=== PATIENT | male | born 1980 ===

== ENCOUNTER 2019-09-22 07:53 | Day surgery (SDC) | payer OTHER ==
[~2019-09-22 07:53] MED LIST: Buffered Lidocaine 1% SYRIN* 1 ML/SYRINGE INTRADERM ONE; Lactated Ringers 1000 ML Bag* 1,000 ML IV SCH
[2019-09-22] MEDS ORDERED: ceFAZolin 2 GM PREMIX in ORs 2 GM/50 ML BAG ONE (08:05)
[2019-09-22] MEDS ORDERED: Glycopyrrolate IV* 0.2 MG/ML 1 ML VIAL ONE (08:20)
[2019-09-22] MEDS ORDERED: Propofol* 10 MG/ML 20 ML BTL ONE (08:20)
[2019-09-22] MEDS ORDERED: Ketorolac INJ* 30 MG/ML 1 ML VIAL ONE (08:20)
[2019-09-22] MEDS ORDERED: Dexamethasone IV* 4 MG/ML 1 ML (4 MG) ONE (08:20)
[2019-09-22] MEDS ORDERED: Rocuronium* 10 MG/ML VIAL ONE (08:20)
[2019-09-22] MEDS ORDERED: fentaNYL* 50 MCG/ML 2 ML VIAL (100 MCG VIAL) ONE (08:20)
[2019-09-22] MEDS ORDERED: Ondansetron INJ* 2 MG/ML VIAL ONE (08:20)
[2019-09-22] MEDS ORDERED: Midazolam* 1 MG/ML 2 ML VIAL (2 MG) ONE (08:20)
[2019-09-22] MEDS ORDERED: oxyCODONE/Acetamin 5/325 MG* TAB PO PRN (11:03)
[2019-09-22] MEDS ORDERED: Naloxone* 0.4 MG/ML 1 ML VIAL IV PRN (11:03)
[2019-09-22] MEDS ORDERED: Sugammadex * 200 MG/2 ML VIAL IV PUSH ONE (11:07)
--- NOTE | 2019-09-22 12:40 | OP ---
Operative Report - Blank - Operative Report Date of Operation: 09/22/19 Note: Pre-OP Diagnoses: Left inguinal hernia Post-op Diagnosis: same Procedure: Robotic Left inguinal hernia repair with mesh Surgeon: Alicja Meier: Constance Anethesia: ELLYN EBL: minimal IVF: minimal Specimen: none Drains: none
[2019-09-22 14:57] VITALS: BP 124/72
--- NOTE | 2019-09-23 01:14 | OP ---
DATE OF OPERATION: 09/22/19 - [facility] DATE OF : 76 SURGEON: Shaun Helm MD. JEWEL SORTER: SATYA Torres. ANESTHESIA: General anesthesia. PRE-OP DIAGNOSIS: Left inguinal hernia. POST-OP DIAGNOSIS: Left inguinal hernia. OPERATIVE PROCEDURE: Robotic left inguinal hernia repair with mesh. ESTIMATED BLOOD LOSS: Minimal. FLUIDS: Minimal crystalloid fluid given. SPECIMEN: None. COUNTS: Lap pad count and instrument count correct at the end of the procedure. COMPLICATIONS: None. DRAINS: None. DESCRIPTION OF PROCEDURE: The patient was identified in the preoperative area. He was marked appropriately, brought to the operating room and placed on the operating table in the supine position. Preoperative antibiotics were given. Sequential devices were placed in bilateral lower extremities. General anesthesia was induced. The patient's abdomen was prepped and draped in standard surgical fashion, time-out was performed. Fold of the umbilicus was elevated anteriorly and a Veress needle inserted into the abdominal cavity which was then allowed to insufflate to a pressure of 15 mmHg. The patient tolerated the insufflation well. An 8 mm unbladed trocar was then placed in the left upper quadrant. Additional trocars were then placed under direct vision. These were an 8 mm at the supraumbilical site and a 12 mm in the right upper quadrant. Veress needle was removed and there was no evidence of injury from the trocar insertion or from the Veress needle. Table was placed in Trendelenburg. Laparoscope was inserted, and there was no evidence of a right inguinal hernia. The left inguinal hernia was identified, enlarged, and we then docked the robot in the appropriate fashion. At the console, I took the peritoneum off the area of the left groin, starting at the median umbilical ligament and extending laterally. Blunt and sharp dissection were carried out to identify the midline structures as well as Farrukh ligament. The epigastric vessels were maintained anteriorly and there is no evidence of a direct hernia. We extended our dissection laterally, freeing up this preperitoneal space until the space of Bogros was identified. We then addressed the large indirect hernia with gentle traction, at times with significant traction. We reduced this with sharp and blunt dissection until the sac was completely reduced and freed up from the spermatic structures. These spermatic structures were identified, mainly the vas deferens and was not injured. The dissection was carried posteriorly until we had the full myopectineal orifice exposed and we then placed a Bard large 3DMax mesh into the abdomen. This was then placed in the appropriate fashion and sutured to Farrukh ligament and also superiorly just left and right of the epigastric vessels. It laid in the appropriate fashion covering the myopectineal orifice and then we reapproximated the peritoneum overlying this with a running 3-0 V-Loc suture. The robot was undocked. We then addressed the 12 mm trocar and closed this at the fascia layer with a 0 Vicryl suture. We then allowed the abdomen to collapse, trocars were removed, and all 3 skin incisions were reapproximated with 4-0 Monocryl subcuticular sutures followed by Steri-Strips and sterile dressing. [id number]/[facility] #: [id number] DARLIN
== END 2019-09-22 14:30 | disposition home or self-care (01) ==
LOC: OR 07:53
PROVIDERS: ATTEND Surgery
DX: K40.90 Unilateral inguinal hernia, without obstruction or gangrene, not specified as recurrent (principal); Z87.891 Personal history of nicotine dependence
CPT/HCPCS: 49650; S2900; C1781; J0690; J1100; J1885; J2250; J2405; J2704; J3010